=== PATIENT | female | born 1970 | race Caucasian/White ===

== ENCOUNTER → 2018-03-03 | Outpatient (CLI) | payer OTHER | LOC: FIMAGING 10:40 | PROVIDERS: ATTEND Nurse Practitioner Family | DX: Z12.31 Encounter for screening mammogram for malignant neoplasm of breast (principal) ==

== ENCOUNTER 2018-10-20 15:07 | Emergency (ER) | payer OTHER ==
--- NOTE | 2018-10-20 15:32 | EDPHY ---
H & P Stated Complaint: Feels nausea, has warm sensation to right calf, sent by PCP to R/O clot. Time Seen by Provider: 10/20/18 15:28 HPI/ROS: HPI: This is a 48-year-old female who presents with Chief Complaint: Feels nausea, has warm sensation to right calf, sent by PCP to R/O clot. Location: Right calf Quality: Warm sensation Duration: Since this morning Signs and Symptoms: No bleeding, no radiation, no numbness, no weakness, no tingling, no incontinence, no decreased range of motion, no swelling, no pain, no fever Timing: Acute, constant Severity: [id number] Context: Patient was taking estrogen supplementation until about 1 month ago, nonsmoker, presents at the urging of her PCP with waking up this morning feeling a warm sensation from her right calf that radiates up into the right anterior knee. She denies any recent long distance travel, paresthesias, weakness. She is ambulatory without any difficulty or pain. No recent trauma or injury. Denies skin color changes. Modifying Factors: None Comment: ROS: A comprehensive 10 system review of systems is otherwise negative aside from elements mentioned in the history of present illness. MEDICAL/SURGICAL/SOCIAL HISTORY: Medical history: Hypothyroidism Surgical history: Denies Social history: Never smoked. . CONSTITUTIONAL: Extremely polite and cooperative well-appearing middle-aged white female, awake and alert, no obvious distress HEENT: Atraumatic and normocephalic. NECK: supple, no JVD EXTREMITIES: 2/2 pedal pulses, strength 5/5, right KNEE: no effusion, no medial and lateral joint line tenderness, full extension to 180, flexion to 120 . No pain with varus and valgus exam. No pain with anterior drawer or posterior drawer test. Extensor mechanism intact. Positive Homans sign right calf; no palpable cords, no varicose veins. No fullness noted in the popliteal fossa. DIP/PIP/MCP flexion/extension intact with good light touch sensation. no deformities, no clubbing, no cyanosis or edema. NEUROLOGICAL: no focal neuro deficits. GCS 15. Light touch sensation intact. SKIN: Warm and dry, no erythema. no rash. Good capillary refill. Source: Patient Exam Limitations: No limitations - Personal History Current Tetanus Diphtheria and Acellular Pertussis (TDAP): Unsure - Medical/Surgical History Hx Asthma: No Hx Chronic Respiratory Disease: No Hx Diabetes: No Hx Cardiac Disease: No Hx Renal Disease: No Hx Cirrhosis: No Hx Alcoholism: No Hx HIV/AIDS: No Hx Splenectomy or Spleen Trauma: No Other PMH: Pneumonia - Social History Smoking Status: Never smoked Constitutional: Initial Vital Signs Temperature (C) 36.7 C 10/20/18 15:11 Heart Rate 68 10/20/18 15:11 Respiratory Rate 18 10/20/18 15:11 Blood Pressure 122/75 H 10/20/18 15:11 O2 Sat (%) 96 10/20/18 15:11 O2 Delivery Mode Room Air Allergies/Adverse Reactions: amoxicillin Allergy (Intermediate, Verified 04/07/14 22:17) makes pt. depressed Home Medications: Medication Instructions Recorded LEVOTHYROXINE SODIUM [Tirosint 75 06/02/13 mcg] Verapamil HCl [VERELAN PM] 200 mg 06/02/13 lamoTRIgine [LamICTAL 100 MG (RX)] 350 mg 06/02/13 Orphenadrine Citrate [Norflex 100 100 mg PO BID PRN #20 tab 04/07/14 mg (RX)] traMADol [Ultram 50 mg (*)] 50 - 100 mg PO Q6 PRN #20 tab 04/07/14 Medical Decision Making - Diagnostics Imaging Results: Imaging Impressions Extremity Venous Study 10/20/18 15:29 Impression: No deep venous thrombosis right leg. Findings and recommendations discussed with Emergency Department physician, Iris DE LA CRUZ at 16:19 hour, 10/20/2018. Final report concurs with initial preliminary interpretation. ED Course/Re-evaluation: Vital signs reviewed and stable upon arrival. No systemic signs. Right lower extremity ultrasound ordered to evaluate for Beth cyst versus DVT. 1620: Called by Radiology, Dr. Mueller, who advised no DVT, Beth cyst. Patient is to continue supportive care and follow up with PCP if symptoms persist. No signs of neurovascular compromise/tenting of skin/compartment syndrome/ extremities and joints examined above and below area of concern and are neurovascularly intact/cellulitis. This patient was seen under the supervision of my secondary supervising physician. I evaluated care for this patient independently. Discussed this patient with Dr. Alberto who did not see the patient. Differential Diagnosis: Leg swelling including but not limited to hypoalbuminemia, congestive heart failure, cor pulmonale, chronic venous stasis and DVT. Departure - Departure Disposition: Home, Routine, Self-Care Clinical Impression: Muscle ache of extremity Condition: Good Instructions: Musculoskeletal Pain (ED) Additional Instructions: Consume a minimum of 8-10 glasses of water or electrolyte fluid replacement drinks that include Gatorade, Powerade, Pedialyte. Perform gentle stretching exercises and massage therapy. If symptoms persist greater than 2-3 days, follow-up with primary care provider for further evaluation. Referrals: Patient,NotPresent [Unknown] - 2-3 days, if not improved
[2018-10-20 16:30] VITALS: BP 110/75
== END 2018-10-20 16:30 | disposition home or self-care (01) ==
DX: M79.661 Pain in right lower leg (principal); E03.9 Hypothyroidism, unspecified

== ENCOUNTER → 2019-04-02 | Outpatient (CLI) | payer OTHER | LOC: FIMAGING 12:09 ==